=== PATIENT | male | born 1955 | race Caucasian/White ===

== ENCOUNTER 2018-10-01 16:19 | Emergency (ER) | payer BC, OTHER ==
[~2018-10-01] VITALS: Ht 177.8 cm; Wt 92.1 kg
[2018-10-01] MEDS ORDERED: SIMETHICONE 80 MG CHEW TAB PO ONE (17:30)
--- NOTE | 2018-10-01 17:50 | REP ---
Clinical: Abdominal pain. Technique: Two supine views of the abdomen and pelvis. Findings: Bowel gas pattern is nonspecific. No evidence for obstruction or perforation. No organomegaly. Skeletal structures demonstrate age-related changes. Phleboliths noted in the pelvis. Impression: Nonspecific bowel gas pattern. Electronically Signed by Woo Hinds MD 10/01/2018 05:42 P
[2018-10-01] MEDS ORDERED: SUCRALFATE SUSP 1GM/10ML UD PO ONE (18:15)
[2018-10-01] MEDS ORDERED: traMADol 50 MG TAB PO ONE (18:15)
[2018-10-01] MEDS ORDERED: PANTOPRAZOLE 40MG TAB (PROTONIX) PO ONE (18:15)
[2018-10-01] MEDS ORDERED: MIRALAX *UNIT DOSE* 17GM PACKET PO ONE (19:15)
[2018-10-01] MEDS ORDERED: MIRALAX *UNIT DOSE* 17GM PACKET PO SCH (19:15)
[2018-10-01] MEDS ORDERED: NS 1,000 ML IV ONE (19:15)
[2018-10-01 19:55] LABS: BASO % 0.2 % (0.0-1.0); BILIRUBIN,DIRECT 0.1 MG/DL (0.0-0.2); BILIRUBIN,TOTAL 0.5 MG/DL (0.2-1.0); EOS # 0.1 10^3/uL (0.0-0.50); EOS % 0.6 % (0.0-3.0); HEMATOCRIT 46.8 % (42.0-52.0); HEMOGLOBIN 15.1 g/dl (13.5-17.5); LYMPH # 1.1 10^3/uL (1.5-4.5); LYMPH % 9.7 % (24.0-44.0); MEAN CORPUSCULAR HEMOGLOBIN 30.1 pg (27.0-33.0); MEAN CORPUSCULAR HGB CONC 32.3 g/dl (32.0-36.5); MEAN CORPUSCULAR VOLUME 93.2 fl (80.0-96.0); MONO # 0.9 10^3/uL (0.0-0.8); MONO % 8.1 % (0.0-5.0); NEUTROPHILS # 9.1 10^3/uL (1.8-7.7); PLATELET COUNT, AUTOMATED 272 10^3/uL (150-450); RED BLOOD COUNT 5.02 10^6/uL (4.30-6.10); WHITE BLOOD COUNT 11.2 10^3/uL (4.0-10.0)
[2018-10-01] MEDS ORDERED: MORPHINE 2 MG/ML 1ML SYRINGE (J2270) IV ONE ×2 (20:00→22:30)
[2018-10-01] MEDS ORDERED: ISOVUE-370 76% 100ML VIAL (Q9967) As Ordered ONE (20:04)
[2018-10-01] MEDS ORDERED: ONDANSETRON 4MG/2ML VIAL (J2405) IV ONE (20:15)
--- NOTE | 2018-10-01 22:09 | REPVR ---
EXAM: CT Abdomen and Pelvis Without Contrast EXAM DATE/TIME: 10/01/2018 8:16 PM CLINICAL HISTORY: 63 years old, male; Pain and abnormal findings; Abnormal lab test; Elevated wbc; Abdominal pain; Generalized; Additional info: Worsening bilateral quadrant pain, elevated wbc TECHNIQUE: Imaging protocol: Axial computed tomography images of the abdomen and pelvis without contrast. Coronal and sagittal reformatted images were created and reviewed. Radiation optimization: All CT scans at this facility use at least one of these dose optimization techniques: automated exposure control; mA and/or kV adjustment per patient size (includes targeted exams where dose is matched to clinical indication); or iterative reconstruction. COMPARISON: CR Abdomen,Flat Plate KUB 10/01/2018 5:36 PM FINDINGS: Mediastinum: Small hiatal hernia. Liver: Normal. No mass. Gallbladder and bile ducts: Hyperdensity within the gallbladder likely that contrast. Pancreas: Normal. No ductal dilation. Spleen: Normal. No splenomegaly. 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 Kidneys and ureters: Cyst in the lower pole of the left kidney measuring 3 this is an by 4.5 mm. Multiple cysts in the right kidney measuring up to 19 x 21 mm no evidence of stones or hydronephrosis. Stomach and bowel: Status post gastric bypass surgery. Mild fecal loading of the colon. Moderate fecal loading of the rectum and colon. Appendix: No evidence of appendicitis. Intraperitoneal space: Small amount of free fluid in the pelvis. Small abdominal and pelvic ascites. Vasculature: Atherosclerosis. Lymph nodes: Marked thickening of the mildly prominent small bowel loops with surrounding inflammatory changes, mesenteric haziness, small lymph nodes, and swirlling of the mesenteric vessels at the anastomotic site in the left upper quadrant concerning for enteritis may be secondary to infection or inflammation. Bladder: Hyperdensity in the urinary bladder likely contrast from prior study. Clinical correlation is recommended. Reproductive: Prostate is enlarged with calcifications measuring approximately 4.7 x 5.6 cm. Enlarged prostate is causing indentation on the bladder base. Bones/joints: Mild levoscoliosis of the lumbar spine. Mild degenerative changes.. Soft tissues: Unremarkable. IMPRESSION: Marked thickening of the mildly prominent small bowel loops with surrounding inflammatory changes, mesenteric haziness, small lymph nodes, and swirlling of the mesenteric vessels at the anastomotic site in the left upper quadrant concerning for enteritis may be secondary to infection or inflammation. Small pelvic and abdominal ascites. Other findings as described above. COMMENT: Consistent with the [employer]'s Incidental Findings Committee Report (J Am Franck Radiol 2010): Unless the patient's specific circumstances suggest otherwise, any liver lesion 0.5 cm or less, any cystic kidney lesion less than 1.0 cm, and/or any adrenal lesion 1.0 cm or less not otherwise characterized in this report as possessing suspicious or indeterminate imaging features is/are highly likely to be benign and do not require follow-up imaging or biopsy. Electronically signed by: Jannette Hill On 10/01/2018 22:09:42 PM
[2018-10-01] MEDS ORDERED: MOM 30ML SUSPENSION UDC PO ONE (23:30)
[2018-10-01] MEDS ORDERED: KETOROLAC TROMETHAMINE 10 MG TAB PO ONE (23:30)
[2018-10-02] MEDS ORDERED: KETO10TAB PO (00:02)
[2018-10-02 00:07] VITALS: BP 125/67
[2018-10-02] MEDS ORDERED: MIRALAX *UNIT DOSE* 17GM PACKET PO SCH (09:00)
== END 2018-10-02 00:12 | disposition home or self-care (01) ==
LOC: M ED 16:19
DX: K52.9 Noninfective gastroenteritis and colitis, unspecified (principal); K59.00 Constipation, unspecified; Z87.891 Personal history of nicotine dependence
CPT/HCPCS: 74018; 74176; 80047; 81001; 82150; 82247; 82248; 83690; 85025; 87086; 96374; 96375; 96376; 99284; J2270; J2405